=== PATIENT | male | born 1940 ===

== ENCOUNTER 2017-06-06 07:23 | Inpatient (IN) | payer OTHER ==
[2017-06-06] MEDS ORDERED: NS 1,000 ML IV ONE (07:25)
[2017-06-06] MEDS ORDERED: ASPIRIN 81 MG CHEWABLE TAB PO ONE (07:25)
--- NOTE | 2017-06-06 07:25 | EDPHY ---
H & P HPI/ROS: HPI CHIEF COMPLAINT: Chest pain x3 weeks HISTORY OF PRESENT ILLNESS: This patient is 77-year-old male, significant past medical history for GERD, otherwise not take any daily medications, he presents emergency room by private vehicle for chest discomfort. He describes a dull ache. Center of his chest. Sometimes it radiates to both arms worse in his left arm left shoulder however he does feel radiation to his right arm. He denies shortness of breath with this. Notably he tells me that when he exerts himself specifically when he goes to walk up stairs or prolonged walk he gets the chest discomfort more severe. He has to stop walking it somewhat dissipates. Denies any nausea or diaphoresis. Does get some generalized weakness with this chest discomfort. Denies pleuritic pain. Denies productive cough. Denies abnormal swelling. States he may have had a stress test in the 80s. He does not smoke and has never smoked he does drink alcohol daily. The patient tells me currently has chest pain center of his chest substernal dull ache /. Past Medical History: GERD, prostate cancer Past Surgical History: Prostate resection Social History: Daily alcohol use 2-3 drinks of mixture of liquor wine and beer per evening, denies tobacco or illicit drugs Family History: Noncontributory ROS REVIEW OF SYSTEMS: A comprehensive 10 point review of systems is otherwise negative aside from elements mentioned in the history of present illness. Exam Constitutional triage nursing summary reviewed, vital signs reviewed, awake/ alert. Eyes normal conjunctivae and sclera, EOMI, PERRLA. HENT normal inspection, atraumatic, moist mucus membranes, no epistaxis, neck supple/ no meningismus, no raccoon eyes. Respiratory clear to auscultation bilaterally, normal breath sounds, no respiratory distress, no wheezing. Cardiovascular rate normal, regular rhythm, no murmur, no edema, distal pulses normal. Gastrointestinal soft, non-tender, no rebound, no guarding, normal bowel sounds, no distension, no pulsatile mass. Genitourinary no CVA tenderness. Musculoskeletal no midline vertebral tenderness, full range of motion, no calf swelling, no tenderness of extremities, no meningismus, good pulses, neurovascularly intact. Skin pink, warm, & dry, no rash, skin atraumatic. Neurologic awake, alert and oriented x 3, AAOx3, moves all 4 extremities equally, motor intact, sensory intact, CN II-XII intact, normal cerebellar, normal vision, normal speech. Psychiatric normal mood/affect. Heme/Lymph/Immune no lymphadenopathy. Differential diagnosis includes but is not limited to: ACS, atypical chest pain , pneumothorax, pneumonia, pulmonary embolism, aortic dissection, congestive heart failure, tumor, musculoskeletal pain, esophageal pain, GERD, peptic ulcer disease, pancreatitis Medical Decision Making: Plan for this patient IV establishment, blood draw, including troponin, EKG to rule out acute coronary syndrome, two view chest x- ray, full-dose aspirin and nitroglycerin. Re-evaluate. Re-evaluation: EKG interpretation by me on record in [employer] system. Impression time of EKG 7:29 a.m., sinus rhythm rate of 74 Q-waves noted in to 3 AVF. I do not appreciate a significant ST depression or significant ST elevation. No significant T-wave abnormalities. 0812AM: Patient's chest pain with nitroglycerin went from 01/17 to 11/19. Patient is resting comfortably at this time. Will repeat EKG. Troponin still pending. Plan will be for admission to the hospital for chest pain evaluation cardiac rule out. Risk factors for CP: Include, age, Typical Angina, Story, CP with Exertion, Alcohol use. ED x-ray chest two view: Negative for acute cardiopulmonary disease. Image interpreted by myself. EKG interpretation by me on record in [employer] system. Impression time of EKG 8:16 a.m., this is a repeat EKG sinus rhythm rate of 72 again Q-wave seen in inferior leads otherwise I do not appreciate acute ischemic changes specifically no ST elevation, ST depression significant T-wave abnormalities. 0819AM: This time this patient is chest pain-free. Patient be transferred over to [facility] inpatient telemetry unit for further cardiac evaluation. Patient agrees for transfer. Patient agrees for admission. 0847AM: I spoke with Dr. Dobbins with the hospitalist service he agrees to admit this patient. Patient be appropriately transferred over to [facility] inpatient telemetry bed. At this time Hemodynamically stable. CP free. 0952AM: patient resting. No CP. Being trasnfered at this time. Source: Patient - Medical/Surgical History Hx Diabetes: No - Social History Smoking Status: Never smoked Constitutional: Initial Vital Signs Temperature (C) 36.6 C 06/06/17 07:25 Heart Rate 78 06/06/17 07:25 Respiratory Rate 18 06/06/17 07:25 Blood Pressure 146/98 H 06/06/17 07:25 O2 Sat (%) 99 06/06/17 07:25 O2 Delivery Mode Room Air Allergies/Adverse Reactions: Penicillins Allergy (Unknown, Verified 06/06/17 07:37) Sulfa (Sulfonamide Antibiotics) Allergy (Unknown, Verified 06/06/17 07:37) Home Medications: Medication Instructions Recorded Esomeprazole Mag Trihydrate 40 mg PO DAILY 09/07/15 [Nexium] Herbals/Supplements -Info Only 1 ea PO DAILY 09/07/15 [place]-3 Fatty Acids [Fish Oil] 1,000 mg PO Q48H 09/07/15 Medical Decision Making - Diagnostics Imaging Results: Imaging Impressions Chest X-Ray 06/06/17 07:26 Impression: No acute findings in the chest. - Data Points Laboratory Results: Laboratory Results 06/06/17 07:40 06/06/17 07:40 06/06/17 06/06/17 06/06/17 07:40 07:40 07:40 WBC 6.65 10^3/uL 10^3/uL (3.80-9.50) RBC 5.11 10^6/uL 10^6/uL (4.40-6.38) Hgb 18.0 g/dL H g/dL (13.7-17.5) Hct 50.2 % % (40.0-51.0) MCV 98.2 fL fL (81.5-99.8) MCH 35.2 pg H pg (27.9-34.1) MCHC 35.9 g/dL g/dL (32.4-36.7) RDW 12.1 % % (11.5-15.2) Plt Count 215 10^3/uL 10^3/uL (150-400) MPV 10.1 fL fL (8.7-11.7) Neut % (Auto) 55.1 % % (39.3-74.2) Lymph % (Auto) 31.9 % % (15.0-45.0) [place] % (Auto) 9.6 % % (4.5-13.0) Eos % (Auto) 2.3 % % (0.6-7.6) Baso % (Auto) 0.8 % % (0.3-1.7) Nucleat RBC Rel Count 0.0 % % (0.0-0.2) Absolute Neuts (auto) 3.67 10^3/uL 10^3/uL (1.70-6.50) Absolute Lymphs (auto) 2.12 10^3/uL 10^3/uL (1.00-3.00) Absolute Monos (auto) 0.64 10^3/uL 10^3/uL (0.30-0.80) Absolute Eos (auto) 0.15 10^3/uL 10^3/uL (0.03-0.40) Absolute Basos (auto) 0.05 10^3/uL 10^3/uL (0.02-0.10) Absolute Nucleated RBC 0.00 10^3/uL 10^3/uL (0-0.01) Immature Gran % 0.3 % % (0.0-1.1) Immature Gran # 0.02 10^3/uL 10^3/uL (0.00-0.10) PT 12.0 SEC SEC (12.0-15.0) INR 0.91 (0.83-1.16) APTT 29.3 SEC SEC (23.0-38.0) Sodium 138 mEq/L mEq/L (134-144) Potassium 5.2 mEq/L mEq/L (3.5-5.2) Chloride 101 mEq/L mEq/L (97-110) Carbon Dioxide 24 mEq/l mEq/l (22-31) Anion Gap 13 mEq/L mEq/L (8-16) BUN 14 mg/dL mg/dL (7-23) Creatinine 0.8 mg/dL mg/dL (0.7-1.3) Estimated GFR > 60 Glucose 97 mg/dL mg/dL (70-100) Calcium 9.4 mg/dL mg/dL (8.5-10.4) Magnesium 1.8 mg/dL mg/dL (1.6-2.3) Total Bilirubin 0.6 mg/dL mg/dL (0.1-1.4) Conjugated Bilirubin 0.2 mg/dL mg/dL (0.0-0.5) Unconjugated Bilirubin 0.4 mg/dL mg/dL (0.0-1.1) AST 32 IU/L IU/L (17-59) ALT 34 IU/L IU/L (21-72) Alkaline Phosphatase 44 IU/L IU/L (38-126) Creatine Kinase 195 IU/L IU/L (0-224) CK-MB (CK-2) Fraction 3.35 ng/mL ng/mL (0-4.55) Troponin I < 0.012 ng/mL ng/mL (0-0.034) NT-Pro-B Natriuret Pep 446 pg/mL pg/mL (0-450) Total Protein 6.9 g/dL g/dL (6.3-8.2) Albumin 4.2 g/dL g/dL (3.5-5.0) Medications Given: Discontinued Medications Aspirin (Aspirin) 324 mg PO EDNOW ONE Stop: 06/06/17 07:26 Last Admin: 06/06/17 07:35 Dose: 324 mg Sodium Chloride (Ns) 1,000 mls @ 0 mls/hr IV ONCE ONE; Wide Open PRN Reason: Protocol Stop: 06/06/17 07:26 Last Admin: 06/06/17 07:58 Dose: 1,000 mls Morphine Sulfate (Morphine) 2 mg IVP EDNOW ONE Stop: 06/06/17 08:12 Last Admin: 06/06/17 08:49 Dose: Not Given Nitroglycerin (Nitrostat) 0.4 mg SL EDNOW ONE Stop: 06/06/17 07:33 Last Admin: 06/06/17 07:57 Dose: 0.4 mg Departure - Departure Disposition: [facility] Inpatient Acute Clinical Impression: Chest pain Qualifiers: Chest pain type: unspecified Qualified Code(s): R07.9 - Chest pain, unspecified Condition: Fair Referrals: Sarmad Dobson DO [Primary Care Provider] - As per Instructions
--- NOTE | 2017-06-06 07:31 | CPEKG ---
Heart Rate: 74 RR Interval: 811 P-R Interval: 172 QRSD Interval: 84 QT Interval: 352 QTC Interval: 391 P [place]: 64 QRS [place]: -25 T Wave [place]: 31 EKG Severity - OTHERWISE NORMAL ECG - EKG Impression: SINUS ARRHYTHMIA, RATE 60-86 EKG Impression: BORDERLINE LEFT AXIS DEVIATION Electronically Signed By: Marc Gtz 11-Jun-2017 10:57:58
[2017-06-06] MEDS ORDERED: NITROGLYCERIN 0.4 MG BTL SL ONE (07:32)
[2017-06-06 07:51] LABS: % IMMATURE GRANULYOCYTES 0.3 % (0.0-1.1); ABSOLUTE IMMATURE GRANULOCYTES 0.02 10^3/uL (0.00-0.10); ADD DIFF? NO; ADD MORPH? NO; ADD SCAN? NO; ATYPICAL LYMPHOCYTE FLAG 10 (0-99); FRAGMENT RBC FLAG 0 (0-99); HEMATOCRIT 50.2 % (40.0-51.0); LEFT SHIFT FLG 0 (0-99); LIPEMIA HEMOLYSIS FLAG 90 (0-99); MEAN CELL HEMOGLOBIN 35.2 pg (27.9-34.1); MEAN CELL HEMOGLOBIN CONCENTR. 35.9 g/dL (32.4-36.7); MEAN CELL VOLUME 98.2 fL (81.5-99.8); MEAN PLATELET VOLUME 10.1 fL (8.7-11.7); PLATELET CLUMPS FLAG 10 (0-99); PLATELET COUNT 215 10^3/uL (150-400); RED BLOOD CELL COUNT 5.11 10^6/uL (4.40-6.38); RED CELL DISTRIBUTION WIDTH 12.1 % (11.5-15.2)
[2017-06-06 08:00] LABS: INR 0.91 (0.83-1.16)
[2017-06-06 08:01] LABS: APTT 29.3 SEC (23.0-38.0)
[2017-06-06 08:14] LABS: ALANINE AMINOTRANSFERASE 34 IU/L (21-72); ALBUMIN 4.2 g/dL (3.5-5.0); ALKALINE PHOSPHATASE 44 IU/L (38-126); ANION GAP 13 mEq/L (8-16); ASPARTATE AMINOTRANSFERASE 32 IU/L (17-59); BILIRUBIN,TOTAL 0.6 mg/dL (0.1-1.4); BILIRUBIN-CONJUGATED 0.2 mg/dL (0.0-0.5); BILIRUBIN-UNCONJUGATED 0.4 mg/dL (0.0-1.1); CALCIUM 9.4 mg/dL (8.5-10.4); CARBON DIOXIDE 24 mEq/l (22-31); CHLORIDE 101 mEq/L (97-110); CREATININE 0.8 mg/dL (0.7-1.3); GLOMERULAR FILTRATION RATE > 60; GLUCOSE 97 mg/dL (70-100); MAGNESIUM 1.8 mg/dL (1.6-2.3); POTASSIUM 5.2 mEq/L (3.5-5.2); SODIUM 138 mEq/L (134-144); TOTAL PROTEIN 6.9 g/dL (6.3-8.2)
[2017-06-06 08:16] LABS: CREATINE KINASE-MB FRACTION 3.35 ng/mL (0-4.55); TROPONIN I < 0.012 ng/mL (0-0.034)
--- NOTE | 2017-06-06 08:18 | CPEKG ---
Heart Rate: 72 RR Interval: 833 P-R Interval: 184 QRSD Interval: 82 QT Interval: 376 QTC Interval: 412 P [place]: 45 QRS [place]: -25 T Wave [place]: 22 EKG Severity - OTHERWISE NORMAL ECG - EKG Impression: SINUS RHYTHM EKG Impression: BORDERLINE LEFT AXIS DEVIATION Electronically Signed By: Marc Gtz 11-Jun-2017 10:57:48
[2017-06-06] MEDS ORDERED: ACETAMINOPHEN 325 MG TAB PO PRN (16:57)
[2017-06-06] MEDS ORDERED: TEMAZEPAM 15 MG CAP PO PRN (16:57)
[2017-06-06] MEDS ORDERED: LORazepam 2 MG/ML INJ IVP PRN (16:57)
[2017-06-06] MEDS ORDERED: ONDANSETRON DISINTEGRATING 4 MG TAB PO PRN (16:57)
[2017-06-06] MEDS ORDERED: LORazepam 0.5 MG TAB PO PRN (16:57)
[2017-06-06] MEDS ORDERED: ZOLPIDEM TARTRATE 5 MG TAB PO PRN (16:57)
[2017-06-06] MEDS ORDERED: ONDANSETRON 4 MG/2 ML VIAL IVP PRN (16:57)
[2017-06-06] MEDS ORDERED: ALBUTEROL 3 ML DEYVIAL IH PRN (16:57)
[2017-06-06] MEDS ORDERED: KETOCONAZOLE 2% 15 GM CREAM TP PRN (17:01)
[2017-06-06] MEDS ORDERED: NITROGLYCERIN 0.4 MG BTL SL PRN (17:03)
[2017-06-06] MEDS ORDERED: ALBUTEROL 200 PUFFS/18 GM MDI IH PRN (17:15)
--- NOTE | 2017-06-06 17:35 | GHP ---
[f rep st] HISTORY AND PHYSICAL DATE OF ADMISSION: 06/06/2017 REASON FOR ADMISSION: Chest pain x3 weeks. HISTORY OF PRESENT ILLNESS: A 77-year-old male who has a significant past history of GERD, for which he takes Nexium on a daily basis. He otherwise takes no medications. For the past 3 weeks, he has been experiencing mid/center dull, aching chest pain, worse with exertion and relieved by rest. The exertion of walking up steps and lifting his arms above his head will cause anterior chest pain, which sometimes radiates toward his left shoulder. It is persistently associated with exertion and declines with rest. He has had no diaphoresis, nausea or vomiting. He has no prior history of coronary disease and no cardiac rhythm disturbance. He possibly has a family history of early coronary artery disease in his father and perhaps his brother. He does not smoke, though he does drink 2-3 glasses of wine or beer every evening. In the interval, he has noted no sense of nausea, vomiting, diaphoresis, fever, chills, sweats. There has been no abdominal pain, diarrhea, skin rash. He also denies having orthopnea, PND and peripheral edema. He has no prior cardiac history. PAST MEDICAL HISTORY: Positive for: 1. GERD, for which he takes long-acting Nexium on a daily basis. 2. Prostatic cancer diagnosed approximately 20 years ago, now without symptoms. He says his PSA is low. SOCIAL HISTORY: This gentleman is single. 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 He had been in the [employer] for many years. He has daily alcohol use, 2-3 drinks every evening of wine or beer. Tobacco: None. Drugs: None. FAMILY HISTORY: Perhaps early coronary disease in his father. Otherwise, it is negative. ALLERGIES: None. MEDICATIONS: Currently only Nexium. REVIEW OF SYSTEMS: A 10-point review is negative except as noted above. PHYSICAL EXAMINATION: GENERAL: This is a pleasant gentleman who at this time says he is experiencing some feeling of discomfort in his anterior chest. VITAL SIGNS: Normal. HEENT: Shows no scleral icterus or nystagmus. NECK: Supple. There is no tenderness in the cervical region. THORAX: No tenderness in the axillary region, chest wall nontender to palpation. Normal inspiratory excursion. LUNGS: Clear to P and A, without wheezing or rales. HEART: Single S1 and S2. No murmur, gallop or rub. ABDOMEN: Nontender, benign, without masses, tenderness or organomegaly. EXTREMITIES: No edema, cyanosis or clubbing. DIAGNOSTIC DATA: ECG shows normal sinus rhythm at approximately 70. Q waves are noted in III and aVF; age is indeterminate. There was no significant ST segment depression or elevation. A repeat ECG also showed no changes. Chest x-ray from outside facility showed no evidence of infiltrate. LABORATORY DATA: CBC is normal. INR normal. His chemistry panel is normal. Two troponins are within normal limits. Magnesium is 1.8. ASSESSMENT AND PLAN: 1. Acute chest pain, possible early coronary ischemia. The troponins are currently negative but will continue a serial troponin evaluation and repeat ECGs. If these are negative, then cardiac risk stratification, possibly with a treadmill, would be appropriate. I have contacted Dr. Marco Krueger, and Cardiology will be consulting. 2. History of gastroesophageal reflux disease, on Nexium. Will continue his PPI medication. 3. Deep vein thrombosis prophylaxis will be with Lovenox and ambulation. 4. His code status is full. Case discussed with cardiology who will see this afternoon. Possible cardiac cath. /[id number]/MODL MTDD
--- NOTE | 2017-06-06 17:44 | CPEKG ---
Heart Rate: 61 RR Interval: 984 P-R Interval: 176 QRSD Interval: 88 QT Interval: 384 QTC Interval: 387 P [place]: 60 QRS [place]: -18 T Wave [place]: 33 EKG Severity - OTHERWISE NORMAL ECG - EKG Impression: SINUS RHYTHM EKG Impression: BORDERLINE LEFT AXIS DEVIATION Electronically Signed By: Mirza Marques 07-Jun-2017 10:21:02
--- NOTE | 2017-06-06 17:56 | ECHO ---
[id number] + + [address] : : [place] [address] : : [phone] + + Adult Echocardiographic Report + + :Name: EVI JONESshagufta Date: 06/06/2017 04:29 PM : : Hospital Admission Number: [id number] Loc ation: 204: :: 1940 Gender: Male : :Age: 77 yrs Race: UN : :Reason For Study: chest pain : :History: chest pain : + + MMode/2D Measurements \T\ Calculations IVSd: 1.2 cm RVDd: 1.8 cm FS: 31.9 % Ao root diam: LVPWd: 1.0 cm LVIDd: 3.6 cm EDV(Teich): 3.2 cm LVIDs: 2.5 cm 55.9 ml ESV(Teich): 21.9 ml EF(Teich): 60.9 % LVLd ap4: 8.7 cm SV(MOD-sp4): EDV(MOD-sp4): 70.0 ml 117.0 ml LVLs ap4: 7.8 cm ESV(MOD-sp4): 47.0 ml EF(MOD-sp4): 59.8 % Normal Measurement Values: + + :LVIDd (3.5-5.7cm) IVSd (0.6-1.1cm) LVPWd (0.6-1.1cm) Aortic Root (2.0-3.7cm)Left Atrium (1.5-4.0cm): :LV Vol(d) (76-115ml) LV Vol(s) (29-48ml) Ejec Fraction (50-65%)PV Dewey (0.6- 1.2m/s) TV Dewey (0.4-1.0m/s) : :MV E Dewey (0.8-1.0m/s)MV A Dewey (0.3-1.0m/s)LVOT Dewey (0.7-1.2m/s) Asc Ao Dweey ( 0.9-1.8m/s) : + + Doppler Measurements \T\ Calculations MV E max dewey: Ao V2 max: LV V1 max: PA V2 max: 68.6 cm/sec 135.7 cm/sec 86.9 cm/sec 71.9 cm/sec MV A max dewey: Ao max P.4 mmHgLV V1 max PG: PA max P.1 cm/sec 3.0 mmHg 2.1 mmHg MV E/A: 0.66 MV dec time: 0.17 sec Left Ventricle The left ventricle is normal in size and function. There is mild concentric left ventricular hypertrophy. Ejection Fraction = 60%. No regional wall motion abnormalities noted. Right Ventricle The right ventricle is normal in size and function. Atria The left atrial size is normal. Right atrial size is normal. Mitral Valve The mitral valve is normal in structure and function. There is no mitral valve stenosis. There is trace to mild mitral regurgitation. Tricuspid Valve The tricuspid valve is normal in structure and function. There is no tricuspid stenosis. No tricuspid regurgitation. Aortic Valve The aortic valve is trileaflet. Mild aortic leaflet sclerosis. There is no aortic stenosis. There is no aortic insufficiency. Pulmonic Valve The pulmonic valve is normal in structure and function. Great Vessels The aortic root is normal size. Pericardium/Pleural There is no pericardial effusion. Conclusion A two-dimensional transthoracic echocardiogram with M-mode and Doppler was performed. The left ventricle is normal in size and function. There is mild concentric left ventricular hypertrophy. Ejection Fraction = 60%. There is trace to mild mitral regurgitation. Final Reading Physician: Leti Dominguez signed on 06/06/2017 05:54 PM Ordering Physician: Romaine Medeiros Performed By: Britney Spencer
--- NOTE | 2017-06-06 20:11 | GCON ---
[f rep st] CONSULTATION CARDIOLOGY CONSULTATION INDICATION FOR CARDIOLOGY CONSULTATION: Ongoing exertional chest pressure. HISTORY OF PRESENT ILLNESS: The patient is a 77-year-old male with reported no significant cardiac history, who reports starting 3 weeks ago, while in [place] for a family reunion, he develope d a left anterior chest pressure, which came on mildly with exertion. He did not think much of this at first, thinking that he had pulled some muscles. Reporting over the last 3 weeks, this has pers istently been getting worse, reporting that over the last week, has pretty much been happening with any kind of exertion. Reporting that it is associated with radiation, occasionally at its worse, it does radiate to his shoulder and left arm, and up into his neck. He denies any nausea or diaphores is, and is uncertain but thinks potentially it is associated with shortness of breath. Usually does subside within 5-30 minutes of rest. Denies of any palpitations, lightheadedness, orthopnea, PND, edema, near-syncope, or syncopal events. Denies of any symptoms suggestive of TIA or CVA. Reportin g no recent history of fevers, chills, night sweats, denies of any hematuria, hematemesis, or blood in his stools. Today, his symptoms had worsened so much that he decided to go to the [facility] Emergency Department; ther e, he did have an electrocardiogram done, which showed sinus rhythm, nondiagnostic Q-waves in lead I and aVL, poor R-wave progression in anterior leads. No acute ST or T-wave abnormalities. Initial laboratory studies were drawn, showing no elevated troponin or BNP. He was given 1 sublingual nitro glycerin with his chest pressure, which he reports had resolved the issue. Due to these concerning symptoms, [facility]; there, he has been remai rodrick on telemetry, he has been mostly resting, and reports no further episodes of chest pressure or pain at this time. Patient with significant cardiac risk factors that include age, sex, remote prev ious smoker, quit over 50 years ago, and family history of coronary artery disease, reporting younge r brother had CABG in his late 60s, 5 years ago. PAST MEDICAL HISTORY: 1. GERD. 2. Previous prostate cancer. 3. Basal cell carcinoma to his nose. 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 FAMILY HISTORY: Patient reporting father of lung cancer, mother still alive and well at 97, yo cesar brother with CAD in his late 60s requiring a CABG. SOCIAL HISTORY: He is a for 5 years, his from Parkinson's. He has 2 adult daughters. 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 He reports that he is a previous smoker during his high school and college days and has krystin t over 20 years ago, he usually drinks 2-3 drinks every evening, denies of any illicit drug use. ALLERGIES: Penicillin and sulfa. HOME MEDICATIONS: 1. Aspirin 325 mg p.o. q.4 hours p.r.n. 2. Nizoral 2% cream, 1 application twice daily p.r.n. 3. Nexium 40 mg p.o. daily. REVIEW OF SYSTEMS: A 10-point review of systems done on this patient all negative, except as keagan barboza above. PHYSICAL EXAMINATION: GENERAL APPEARANCE: Medium built, well-groomed male. He is alert and oriented to person, place, time, situation. Appears to be under no acute distress. CURRENT VIT AL SIGNS: Blood pressure of 134/90, heart rate is 69, sinus rhythm on the monitor, respirations are 14, saturating 98% on room air. Temperature 36.8 degrees Celsius. HEENT: Head is normocephalic. Lips and tongue are pink and moist. No signs of cyanosis. Conjunctivae pink. NECK: Trachea is m idline, +2 carotid pulses bilateral. No auscultated bruits. No jugular vein distention. RESPIRATO RY: Lungs clear to auscultation, no rhonchi, rales or wheezes. No accessory muscle use, no interco stal muscle retraction noted. CARDIAC: Regular rate, regular rhythm, S1, S2, no S3, S4, gallops, r ubs or murmurs noted. ABDOMEN: Soft, nontender, bowel sounds x 4 quadrants, no organomegaly, no pa lpable masses. SKIN: National, warm, dry, no cyanosis, no clubbing, no peripheral edema. VASCULAR: + 2 carotids bilateral, +2 radials bilateral, +2 posterior tibial pulses bilateral. LABORATORY STUDIES: Laboratory studies drawn today show WBC of 6.65, hemoglobin of 18.0, hematocrit of 50.2, platelet count 215. INR 0.91. Sodium 138, potassium 5.2, chloride 101, CO2 24, BUN 14, c reatinine 0.8, glucose 97, calcium 9.4, magnesium 1.8, total bilirubin 0.6, AST 32, ALT 34, alkaline phosphate 44. CK 195, CK-MB 3.35, troponin less than 0.012. BNP 446. Total protein 6.9, albumin 4.2. Repeated troponin done later today at 4 o'clock was less than 0.012. STUDIES: Electrocardiogram done in the emergency department as mentioned above. Chest x-ray showin g no acute cardiopulmonary findings. Echocardiogram done this afternoon showed LV is normal size an d function, there is mild concentric LVH, EF of 60%, trace to mild MR. ASSESSMENT AND PLAN: Exertional chest pressure: Patient reporting ongoing exertional chest pressur e for greater than 3 weeks, worsening in the last few weeks, reporting unable to climb a flight of s tairs without symptoms. Does report radiation to his shoulder and neck, symptoms usually subside wi thin 5-30 minutes of rest. In the emergency department, chest pain was relieved with nitroglycerin. Patient does have moderate cardiac risks. Electrocardiogram showing no acute ST or T-wave abnorma lities. Negative troponins x2. Echocardiogram showing normal LV systolic function. After discussing with both Dr. Escoto and Dr. Marques, it is concerning with patient's symptoms a nd his multiple cardiac risk factors, further evaluation for cardiac ischemia should be done. It is felt that due to his symptoms, which would clearly be equivalent to CCS class 3 symptoms, the patie nt should undergo cardiac catheterization for further evaluation. We have discussed the risks and b enefits of this procedure with the patient and he is agreeable. We will plan for Dr. Marques to pe rform cardiac catheterization tomorrow morning at 8 a.m. We will continue cycling his troponins, co ntinue on continuous cardiac monitoring. He has been started on aspirin therapy, due to his mildly elevated blood pressure and chest pressure symptoms, I will also start him on beta-blockers. Due to no troponin elevation, we will hold off on anticoagulation. If his symptoms reoccur through the ni ght, or he does develop EKG changes, then consideration of more of an urgent cardiac catheterization can be done. Further recommendations will come post cardiac catheterization in the morning. Thank you for this consultation. We will be glad to follow along with you. /[id number]/MODL
[2017-06-06] MEDS: METOPROLOL TARTRATE 25 MG TAB PO SCH (20:28)
[2017-06-06 20:46] LABS: COLOR YELLOW; LEUKOCYTE ESTERASE,URINE NEGATIVE (NEGATIVE); NITRITE,URINE NEGATIVE (NEGATIVE)
[2017-06-06 22:12] LABS: INR 0.99 (0.83-1.16)
[2017-06-07 05:10] LABS: % IMMATURE GRANULYOCYTES 0.3 % (0.0-1.1); ABSOLUTE IMMATURE GRANULOCYTES 0.02 10^3/uL (0.00-0.10); ADD DIFF? NO; ADD MORPH? NO; ADD SCAN? NO; ATYPICAL LYMPHOCYTE FLAG 0 (0-99); FRAGMENT RBC FLAG 0 (0-99); HEMATOCRIT 45.3 % (40.0-51.0); HEMOGLOBIN 16.4 g/dL (13.7-17.5); LEFT SHIFT FLG 0 (0-99); LIPEMIA HEMOLYSIS FLAG 90 (0-99); MEAN CELL HEMOGLOBIN 36.1 pg (27.9-34.1); MEAN CELL HEMOGLOBIN CONCENTR. 36.2 g/dL (32.4-36.7); MEAN CELL VOLUME 99.8 fL (81.5-99.8); MEAN PLATELET VOLUME 10.5 fL (8.7-11.7); PLATELET CLUMPS FLAG 20 (0-99); PLATELET COUNT 190 10^3/uL (150-400); RED BLOOD CELL COUNT 4.54 10^6/uL (4.40-6.38); RED CELL DISTRIBUTION WIDTH 12.1 % (11.5-15.2)
[2017-06-07 05:28] LABS: ALANINE AMINOTRANSFERASE 32 IU/L (21-72); ALBUMIN 3.7 g/dL (3.5-5.0); ALKALINE PHOSPHATASE 35 IU/L (38-126); ANION GAP 9 mEq/L (8-16); APTT 31.1 SEC (23.0-38.0); ASPARTATE AMINOTRANSFERASE 25 IU/L (17-59); BILIRUBIN,TOTAL 0.9 mg/dL (0.1-1.4); CALCIUM 8.9 mg/dL (8.5-10.4); CARBON DIOXIDE 21 mEq/l (22-31); CHLORIDE 109 mEq/L (97-110); CHOLESTEROL 179 mg/dL (140-220); CHOLESTEROL/HDL RATIO 2.89 RATIO (1.00-4.97); CREATININE 0.8 mg/dL (0.7-1.3); GLOMERULAR FILTRATION RATE > 60; GLUCOSE 87 mg/dL (70-100); HIGH DENSITY LIPOPROTEIN 62 mg/dL (40-65); INR 1.03 (0.83-1.16); LOW DENSITY LIPOPROTEIN 99 mg/dL (80-100); MAGNESIUM 1.9 mg/dL (1.6-2.3); NON-HIGH DENSITY LIPOPROTEIN 117 mg/dL (90-129); POTASSIUM 4.3 mEq/L (3.5-5.2); PROTIME(PATIENT) 13.4 SEC (12.0-15.0); SODIUM 139 mEq/L (134-144); TOTAL PROTEIN 6.1 g/dL (6.3-8.2); TRIGLYCERIDE 94 mg/dL (40-150); VERY LOW DENSITY LIPOPROTEINS 18 mg/dL (8-25)
[2017-06-07 05:38] LABS: TROPONIN I < 0.012 ng/mL (0-0.034)
[2017-06-07] MEDS ORDERED: FAMOTIDINE 20 MG TAB PO ONE (06:00)
[2017-06-07] MEDS ORDERED: diphenhydrAMINE 25 MG CAP PO ONE (06:00)
[2017-06-07] MEDS ORDERED: NS 1,000 ML IV ONE (06:00)
[2017-06-07] MEDS ORDERED: DIAZEPAM 5 MG TAB PO ONE (06:00)
[2017-06-07] MEDS ORDERED: fentaNYL 100 MCG/2 ML INJ ONE (07:10)
[2017-06-07] MEDS ORDERED: LIDOCAINE 1% 300 MG/30 ML SDV ONE (07:10)
[2017-06-07] MEDS ORDERED: HEPARIN 10,000 UNIT/10 ML MDV ONE (07:11)
[2017-06-07] MEDS ORDERED: IOPAMIDOL (ISOVUE-370) 150 ML BTL IV ONE ×2 (07:11→08:22)
[2017-06-07] MEDS ORDERED: VERAPAMIL 5 MG/2 ML VIAL ONE (07:11)
[2017-06-07] MEDS ORDERED: MIDAZOLAM 2 MG/2 ML VIAL ONE (07:11)
[2017-06-07] MEDS ORDERED: NITROGLYCERIN 1,500 MCG/15 ML VIAL MISC ONE (08:23)
[2017-06-07] MEDS ORDERED: PRASUGREL HCL 10 MG TAB ONE (08:34)
[2017-06-07] MEDS ORDERED: ASPIRIN 81 MG CHEWABLE TAB PO SCH (09:00)
--- NOTE | 2017-06-07 09:00 | HOSPPROG ---
Hospitalist Progress Note Assessment/Plan: 77-year-old male admitted with exertional chest pain which a grown worse in 1 week [employer]. Chest pain improved with nitroglycerin in the emergency department. 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 Troponins have been negative and rhythm stable throughout the night. -acute chest pain, probable angina,and currently undergoing cardiac catheterization. -prostatic carcinoma, diagnosed 1997 and currently in remission. He receives regular PSA examinations from his PCP. Subjective: no chest pain post cath, feels improved Objective: Vital Signs Temp Pulse Resp BP Pulse Ox 36.9 C 56 L 18 125/76 H 95 06/07/17 08:00 06/07/17 08:00 06/07/17 04:00 06/07/17 08:00 06/07/17 08:00 Laboratory Results 06/07/17 04:13 06/07/17 04:13 06/06/17 06/07/17 06/08/17 05:59 05:59 05:59 Intake Total 2250 Balance 2250 PT 13.4 SEC (12.0-15.0) 06/07/17 04:13 INR 1.03 (0.83-1.16) 06/07/17 04:13 - Time Spent With Patient Time Spent with Patient: greater than 35 minutes Time Spent with Patient: Greater than 35 minutes spent on this patients care, greater than 50% of time spent counseling, educating, and coordinating care regarding the above mentioned plan. - Pending Discharge Pending Discharge Within 24 Hours: Yes Pending Discharge Date: 06/09/17 Pending Discharge Time: 11:00 - Physical Exam Constitutional: no apparent distress Eyes: PERRL Ears, Nose, Mouth, Throat: moist mucous membranes, hearing normal Cardiovascular: regular rate and rhythym, no murmur, rub, or gallop Respiratory: no respiratory distress, no rales or rhonchi, clear to auscultation Gastrointestinal: normoactive bowel sounds, soft, non-tender abdomen, no palpable masses Skin: warm Musculoskeletal: full muscle strength Neurologic: AAOx3, CN II-XII Intact Psychiatric: interacting appropriately ICD10 Worksheet Patient Problems: Problems Problem Status Onset Status post insertion of drug-eluting stent into left anterior descending (LAD) artery Acute CAD (coronary artery disease) Acute Zenker diverticula Acute Chest pain Acute
[2017-06-07] MEDS ORDERED: ATROPINE SULFATE 1 MG/10 ML SYR IVP PRN (09:01)
[2017-06-07] MEDS ORDERED: PRASUGREL HCL 10 MG TAB PO ONE (09:01)
--- NOTE | 2017-06-07 09:07 | PDDXCAT ---
Diagnostic Cath Note - . Date: 06/07/17 Mold Mover: Jerald Indication: CCC Class III and IV angina on medical treatment - Procedure Access: right wrist Procedure: left heart catheterization, coronary angiography, left ventriculogram - Materials Left Heart Cath size: 5F Left Heart Cath materials: pigtail, other ([email or web address]) - Findings-Left Heart Catheterization LM: Unobstructed LAD: Subtotaled at the level of 1st septal evidence technician LCX: Unobstructed RCA: Dominant: Mild nonobstructive calcific atheroma. EDP: 18 mm of mercury LVEF: 45 Wall motion: Anterior apical hypokinesis Complications: None Closure method: TR Band Assessment: 1. Subtotal occlusion of the left anterior descending coronary artery. 2. Ischemic cardiomyopathy ejection for 45% with anterior apical dyskinesis. 3. Normal filling pressures Plan: Urgent PCI: Aggressive medical therapy. Intervention: Procedure: PCI and stenting of the LAD with a 3.0 by 20 mm synergy stent and a 2.5 by 12 mm synergy stent with intravascular ultrasound guidance. Indications: Crescendo angina. After reviewing diagnostic angiograms it was elected to proceed with urgent PCI. Patient was anticoagulated with heparin. The sheath in the wrist was upsized to a 6 [place]. Using a 6 [place] EBU 3.5 guiding catheter left main coronary artery was selectively intubated. Using a 0.014 luge wire the LAD stenosis was crossed. Pre dilatation of the stenosis was performed with a 2 mm balloon. Repeat angiograms revealed BRITTNEE grade 3 flow. It was elected to proceed with stenting at 3.0 x 20 mm synergy stent was placed across the proximal lesion and deployed using a single inflation. There was plaque shift at the level of the bifurcation. Patient was administered intracoronary nitroglycerin. There is no improvement luminal diameter. Intravascular ultrasound was performed confirming plaque shift into the LAD below the principal diagonal. It was elected to proceed with the 2nd synergy stent 2.5 x 12 mm. It was placed in an overlapping fashion. Add a 3.25 x 12 mm noncompliant balloon was used to post dilate both stents. Repeat angiogram showed BRITTNEE grade 3 flow. The wire was withdrawn. Sheath was removed manually. Conclusions: Crescendo angina status post successful PCI and stenting of the proximal LAD. Ischemic cardiomyopathy ejection fraction 45%. Recommendations aggressive medical therapy and secondary prevention. Patient Problems: Problems Problem Status Onset Status post insertion of drug-eluting stent into left anterior descending (LAD) artery Acute CAD (coronary artery disease) Acute Zenker diverticula Acute Chest pain Acute
[2017-06-07] MEDS ORDERED: NS 1,000 ML IV SCH (09:15)
--- NOTE | 2017-06-07 09:15 | SOAPPROG ---
[facility] Progress Note Assessment/Plan: Assessment: 1. Ischemic cardiomyopathy ejection fraction 45%. 2. Status post LAD PCI for crescendo angina. Plan: Aggressive medical therapy with beta-lucas, Chaim inhibition. Dual antiplatelet therapy for 1 year. Cardiac Rehabilitation. Subjective: Uneventful night without further chest pain. Cardiac review of systems is negative for chest pain, shortness of breath, PND , orthopnea, palpitations, syncope, near syncope, edema. Objective: Medications Generic Name Dose Route Start Last Admin Trade Name Fretaurus PRN Reason Stop Dose Admin Metoprolol Tartrate 12.5 mg 06/06/17 21:00 06/06/17 20:28 Lopressor PO 12/03/17 20:59 12.5 mg BID MARINA Vital Signs Temp Pulse Resp BP Pulse Ox 36.9 C 56 L 18 125/76 H 95 06/07/17 08:00 06/07/17 08:00 06/07/17 04:00 06/07/17 08:00 06/07/17 08:00 Laboratory Results 06/07/17 04:13 06/07/17 04:13 06/06/17 06/07/17 06/08/17 05:59 05:59 05:59 Intake Total 2250 Balance 2250 PT 13.4 SEC (12.0-15.0) 06/07/17 04:13 INR 1.03 (0.83-1.16) 06/07/17 04:13 Laboratory Tests 06/06/17 06/06/17 06/06/17 07:40 16:00 21:50 Troponin I < 0.012 < 0.012 < 0.012 NT-Pro-B Natriuret Pep 446 LDL Cholesterol, Calc 06/07/17 04:13 Troponin I < 0.012 NT-Pro-B Natriuret Pep LDL Cholesterol, Calc 99 Physical Exam - Physical Exam General Appearance: alert, no apparent distress EENT: PERRL/EOMI Neck: non-tender, full range of motion Respiratory: chest non-tender, lungs clear Cardiac/Chest: normal peripheral pulses, regular rate, rhythm, No edema, No gallop, No JVD Peripheral Pulses: 1+: carotid (R), carotid (L), femoral (R), femoral (L), dorsalis-pedis (R), dorsalis-pedis (L) Abdomen: normal bowel sounds, non-tender, soft, No organomegaly Back: Normal inspection Skin: normal color, warm/dry Lymphatic: no adenopathy Extremities: normal range of motion, non-tender Neuro/Psych: no motor/sensory deficits, alert, normal mood/affect, oriented x 3 , No facial droop ICD10 Worksheet Patient Problems: Problems Problem Status Onset CAD (coronary artery disease) Acute Chest pain Acute Status post insertion of drug-eluting stent into left anterior descending (LAD) artery Acute Zenker diverticula Acute Review of Systems - Review of Systems Constitutional: denies: chills, fever EENTM: no symptoms reported Respiratory: no symptoms reported Cardiac: no symptoms reported Gastrointestinal/Abdominal: no symptoms reported Genitourinary: no symptoms Musculoskelatal: no symptoms Skin: no symptoms Neurological: no symptoms Hematologic/Lymphatic: no symptoms reported Immunologic/allergic: no symptoms reported
--- NOTE | 2017-06-07 09:36 | CPEKG ---
Heart Rate: 68 RR Interval: 882 P-R Interval: 196 QRSD Interval: 86 QT Interval: 396 QTC Interval: 422 P [place]: 46 QRS [place]: -20 T Wave [place]: 22 EKG Severity - ABNORMAL ECG - EKG Impression: SINUS RHYTHM EKG Impression: CONSIDER ANTERIOR INFARCT EKG Impression: NONSPECIFIC T ABNORMALITIES, LATERAL LEADS Electronically Signed By: Mirza Marques 07-Jun-2017 10:20:53
[2017-06-07] MEDS: MULTIVITAMINS 1 EACH TAB PO SCH (10:53)
[2017-06-07] MEDS: ASPIRIN 325 MG TAB PO SCH (10:53)
[2017-06-07] MEDS: ENOXAPARIN 40 MG/0.4 ML SYR SC SCH (11:53)
[2017-06-07] MEDS: ATORVASTATIN CALCIUM 40 MG TAB PO SCH (12:03)
[2017-06-07] MEDS: METOPROLOL TARTRATE 25 MG TAB PO SCH ×2 (12:03→20:55)
[2017-06-07] MEDS: LISINOPRIL 2.5 MG TAB PO SCH (12:03)
[2017-06-08 05:10] LABS: % IMMATURE GRANULYOCYTES 0.5 % (0.0-1.1); ABSOLUTE IMMATURE GRANULOCYTES 0.04 10^3/uL (0.00-0.10); ADD DIFF? NO; ADD MORPH? NO; ADD SCAN? NO; ATYPICAL LYMPHOCYTE FLAG 0 (0-99); FRAGMENT RBC FLAG 0 (0-99); HEMATOCRIT 45.1 % (40.0-51.0); HEMOGLOBIN 15.9 g/dL (13.7-17.5); LEFT SHIFT FLG 0 (0-99); LIPEMIA HEMOLYSIS FLAG 90 (0-99); MEAN CELL HEMOGLOBIN 35.8 pg (27.9-34.1); MEAN CELL HEMOGLOBIN CONCENTR. 35.3 g/dL (32.4-36.7); MEAN CELL VOLUME 101.6 fL (81.5-99.8); MEAN PLATELET VOLUME 10.8 fL (8.7-11.7); PLATELET CLUMPS FLAG 0 (0-99); PLATELET COUNT 160 10^3/uL (150-400); RED BLOOD CELL COUNT 4.44 10^6/uL (4.40-6.38); RED CELL DISTRIBUTION WIDTH 12.2 % (11.5-15.2)
[2017-06-08 05:13] VITALS: RESP 16
[2017-06-08 05:28] LABS: ALBUMIN 3.4 g/dL (3.5-5.0); ANION GAP 9 mEq/L (8-16); ASPARTATE AMINOTRANSFERASE 24 IU/L (17-59); BILIRUBIN,TOTAL 0.7 mg/dL (0.1-1.4); CALCIUM 8.6 mg/dL (8.5-10.4); CARBON DIOXIDE 22 mEq/l (22-31); CHLORIDE 108 mEq/L (97-110); CREATININE 0.8 mg/dL (0.7-1.3); GLOMERULAR FILTRATION RATE > 60; GLUCOSE 88 mg/dL (70-100); LACTATE DEHYDROGENASE 460 IU/L (313-618); MAGNESIUM 1.9 mg/dL (1.6-2.3); POTASSIUM 4.3 mEq/L (3.5-5.2); SODIUM 139 mEq/L (134-144)
[2017-06-08 07:33] VITALS: BP 132/80; PULSE 66; TEMP 97.7; O2SAT 95
[2017-06-08] MEDS: METOPROLOL TARTRATE 25 MG TAB PO SCH (08:23)
[2017-06-08] MEDS: MULTIVITAMINS 1 EACH TAB PO SCH (08:23)
[2017-06-08] MEDS: ASPIRIN 325 MG TAB PO SCH (08:23)
[2017-06-08] MEDS: ATORVASTATIN CALCIUM 40 MG TAB PO SCH (08:24)
[2017-06-08] MEDS: LISINOPRIL 2.5 MG TAB PO SCH (08:24)
--- NOTE | 2017-06-08 08:53 | CPEKG ---
Heart Rate: 67 RR Interval: 896 P-R Interval: 184 QRSD Interval: 84 QT Interval: 372 QTC Interval: 393 P [place]: 60 QRS [place]: 6 T Wave [place]: 54 EKG Severity - NORMAL ECG - EKG Impression: SINUS RHYTHM Electronically Signed By: Logan Mendes 09-Jun-2017 17:22:45
[2017-06-08] MEDS ORDERED: PRASUGREL HCL 10 MG TAB PO SCH (09:00)
[2017-06-08] MEDS: ENOXAPARIN 40 MG/0.4 ML SYR SC SCH (09:38)
--- NOTE | 2017-06-08 10:19 | SOAPPROG ---
[facility] Progress Note Assessment/Plan: Assessment: 1. Ischemic cardiomyopathy ejection fraction 45%. 2. Status post LAD PCI for crescendo angina/[place] 3. Hyperlipidemia. Procedure: 06/07/2017, left heart catheterization PCI and stenting of the LAD. 06/07/17 Impression: Successful PCI of the LAD Plan: Aggressive medical therapy with beta-lucas, Chaim inhibition. Dual antiplatelet therapy for 1 year. Cardiac Rehabilitation. 06/08/17 10:16 Impression: Day 1 status post LAD PCI in the setting of ACS/myocardial infarction. Troponin suggest event > 17 days ago. Stable hemodynamics overnight. Patient is feeling well and ready for discharge. Plan: Continue dual antiplatelet therapy for 1 year. Enroll patient in cardiac rehabilitation. Follow-up 1 week. Continue beta-blockade, Chaim inhibition for LV remodeling ( EF 45%). No indication for ICD. Statin, goal LDL < 70 mg/dl. Subjective: Feeling well. No complaints. Markedly improved without chest pain/pressure. Cardiac review of systems is negative for chest pain, shortness of breath, PND , orthopnea, palpitations, syncope, near syncope, edema. Objective: Medications Generic Name Dose Route Start Last Admin Trade Name Freq PRN Reason Stop Dose Admin Aspirin 325 mg 06/07/17 09:00 06/08/17 08:23 Aspirin PO 12/04/17 08:59 325 mg DAILY [facility] Atorvastatin Calcium 40 mg 06/07/17 09:30 06/08/17 08:24 Lipitor PO 12/04/17 09:29 40 mg DAILY [facility] Lisinopril 2.5 mg 06/07/17 09:30 06/08/17 08:24 Zestril PO 12/04/17 09:29 2.5 mg DAILY [facility] Metoprolol Tartrate 12.5 mg 06/06/17 21:00 06/08/17 08:23 Lopressor PO 12/03/17 20:59 12.5 mg BID [facility] Prasugrel 10 mg 06/08/17 09:00 06/08/17 08:23 Effient PO 12/05/17 08:59 10 mg DAILY [facility] Vital Signs Temp Pulse Resp BP Pulse Ox 36.5 C 66 16 132/80 H 95 06/08/17 07:29 06/08/17 07:29 06/08/17 07:29 06/08/17 07:29 07/30/17 07:29 Laboratory Results 06/08/17 04:11 06/08/17 04:11 06/07/17 06/08/17 06/09/17 05:59 05:59 05:59 Intake Total 800 Balance 800 PT 13.4 SEC (12.0-15.0) 06/07/17 04:13 INR 1.03 (0.83-1.16) 06/07/17 04:13 Laboratory Tests 06/06/17 06/06/17 06/06/17 07:40 16:00 21:50 Troponin I < 0.012 < 0.012 < 0.012 LDL Cholesterol, Calc 06/07/17 04:13 Troponin I < 0.012 LDL Cholesterol, Calc 99 - Time Spent With Patient Time Spent With Patient: 30 Physical Exam - Physical Exam General Appearance: alert, no apparent distress EENT: PERRL/EOMI, normal ENT inspection Neck: non-tender, full range of motion Respiratory: chest non-tender, lungs clear Cardiac/Chest: normal peripheral pulses, regular rate, rhythm, No edema, No gallop, No JVD Peripheral Pulses: 1+: carotid (R), carotid (L), femoral (R), femoral (L) Abdomen: normal bowel sounds, non-tender, soft, No organomegaly Back: Normal inspection Skin: normal color, warm/dry, No rash Lymphatic: no adenopathy Extremities: normal range of motion, non-tender, No pedal edema, No calf tenderness Neuro/Psych: no motor/sensory deficits, alert, normal mood/affect, oriented x 3 , No facial droop ICD10 Worksheet Patient Problems: Problems Problem Status Onset CAD (coronary artery disease) Acute Chest pain Acute Status post insertion of drug-eluting stent into left anterior descending (LAD) artery Acute Zenker diverticula Acute Review of Systems - Review of Systems Constitutional: denies: chills, fever EENTM: no symptoms reported Respiratory: no symptoms reported Cardiac: no symptoms reported Gastrointestinal/Abdominal: no symptoms reported Genitourinary: no symptoms Musculoskelatal: no symptoms Skin: no symptoms Neurological: no symptoms Hematologic/Lymphatic: no symptoms reported Immunologic/allergic: no symptoms reported
--- NOTE | 2017-06-08 10:51 | GDS ---
[f rep st] DISCHARGE SUMMARY KNOWN ACUTE DIAGNOSES ON THIS ADMISSION: 1. Acute cardiac ischemia, status post stent placement x2. 2. Gastroesophageal reflux disease on PPI medication. CHRONIC DIAGNOSES: 1. Prior prostatic carcinoma. 2. Basal cell carcinoma on the nose. CONSULTATION: Cardiology. PROCEDURES: Cardiac catheterization showing occlusion in the LAD and 2 stents were placed. Another procedure was an echocardiogram showing an EF of 60%, mild concentric LVH, and trace to mild mitral regurg. HOSPITAL COURSE: A 77-year-old male with complaint of exertional chest pain. Initial evaluation re vealed normal troponins. Cardiac catheterization showed significant occlusion in the LAD and 2 sten ts were placed within it via the right wrist. He tolerated the procedure well. Chest pain resolved . The troponins remained normal throughout the stay. DISCHARGE MEDICATIONS: New medications are lisinopril 2.5 mg daily, metoprolol 25 mg tablets 12.5 m g b.i.d., Lipitor 40 mg daily, Plavix 75 mg , Effient 10 mg daily. His continued medicati ons are Nexium delayed release 40 mg a day, Lipitor 40 mg a day, ASA 325 mg a day. The prescriptions were electronically sent to [facility] in [place]. PLAN: Owen will follow up with [facility] and Mirza Marques or a colleague within 1 week. His PCP is Dr. Sarmad Dobson whom he will see on a p.r.n. basis. TIME: This discharge required 35 minutes, greater than 50% to counseling center manager and coordinate his care. /[id number]/MODL
== END 2017-06-08 10:50 | disposition home or self-care (01) | DRG 229 ==
LOC: CED 07:23 → CEDHOLD 08:47 → CED 09:56 → F2W 10:18 → OBSVTOIN 06-07 14:01
PROVIDERS: ADMIT Internal Medicine Pulmonary Disease; ATTEND Internal Medicine Pulmonary Disease
PROC: 027 Heart and Great Vessels, Dilation (ICD-10-PCS; principal; 2017-06-07 09:10)
DX: I21.02 ST elevation (STEMI) myocardial infarction involving left anterior descending coronary artery (principal); I20.0 Unstable angina; I25.5 Ischemic cardiomyopathy; E78.5 Hyperlipidemia, unspecified; K21.9 Gastro-esophageal reflux disease without esophagitis; Z85.46 Personal history of malignant neoplasm of prostate; Z87.891 Personal history of nicotine dependence; Z82.49 Family history of ischemic heart disease and other diseases of the circulatory system; Z80.1 Family history of malignant neoplasm of trachea, bronchus and lung
CPT/HCPCS: 71020-PO; 80048-PO; 80076-PO; 82550-PO; 82553-PO; 83735-PO; 83880-PO; 84484-PO; 85025-PO; 85610-PO; 85730-PO; C1725; C1753; C1769; C1874; C1887; C9600; G0378; J1644; J2250; J3010; Q9967

== ENCOUNTER → 2017-07-02 | Outpatient (CLI) | payer OTHER | LOC: BHFA 14:00 | PROVIDERS: ATTEND Internal Medicine Cardiovascular Disease | DX: I25.10 Atherosclerotic heart disease of native coronary artery without angina pectoris (principal) ==